=== PATIENT | female | born 1995 | race American Indian/Alaskan Native ===

== ENCOUNTER 2017-07-18 12:06 | Emergency (ER) | payer MEDICAID ==
[2017-07-18 12:23] VITALS: BP 131/85
[2017-07-18] MEDS ORDERED: MOTRIN PO ONE (16:50)
[2017-07-18 16:56] LABS: Eosinophils % (Auto) 1.5 % (0.0-4.3); Hemoglobin 11.9 gm/dl (10.1-14.3); Mean Corpuscular HGB Conc 33 % (30-34); Mean Corpuscular Hemoglobin 29 pg (28-32); Mean Corpuscular Volume 88 fl (79-97); Platelet Count 306 K/mm3 (140-440); Red Cell Distribution Width 14.3 % (13.2-15.2); White Blood Count 5.6 K/mm3 (4.5-11.0)
[2017-07-18 17:12] LABS: Anion Gap 15 mmol/L; BUN/Creatinine Ratio 16; Blood Urea Nitrogen 8 mg/dL (7-17); Calcium 8.6 mg/dL (8.4-10.2); Carbon Dioxide 27 mmol/L (22-30); Chloride 101.9 mmol/L (98-107); Glucose 107 mg/dL (65-100); Potassium 3.7 mmol/L (3.6-5.0); Sodium 140 mmol/L (137-145)
--- NOTE | 2017-07-18 17:43 | XRay Report ---
FINAL REPORT EXAM: XR CHEST ROUTINE 2V HISTORY: CP TECHNIQUE: PA and lateral views of the chest PRIORS: None. FINDINGS: Lines, tubes, and devices: N/A Lungs and pleura: Trachea is normal in position. Lungs are clear of infiltrate, pleural effusion, vascular congestion, or pneumothorax. Cardiomediastinal silhouette: Cardiac and mediastinal silhouettes are unremarkable. Other: Bony structures are intact. IMPRESSION: No acute cardiopulmonary process seen.
--- NOTE | 2017-07-18 17:53 | Emergency Department Report ---
ED Chest Pain HPI - General Chief Complaint: Pain General Stated Complaint: BURNING IN CHEST Time Seen by Provider: 07/18/17 16:00 Source: patient Mode of arrival: Ambulatory Limitations: No Limitations - History of Present Illness Initial Comments: This is a 22-year-old female nontoxic, well nourished in appearance, no acute signs of distress presents to the ED with c/o of midsternal pain that is described as burning and aching problem of 8 out of 10 x1 day. Patient denies any trauma to the region. Denies any fever, chills, nausea, vomiting, headache , stiff neck, back pain, radiation of pain, bowel pain, shortness of breath or difficulty breathing. Patient denies hemoptysis. Denies any calf pain or calf tenderness. There is recent travels, long car ride, recent hospital stays. Denies any allergies. Past medical history includes hyperthyroid. MD Complaint: chest pain -: days(s) (1) Pain Location: substernal Pain Radiation: none Severity: mild Severity scale (0 -10): 8 Quality: aching, other (burning) Consistency: constant Improves With: nothing Worsens With: nothing re: denies: nausea, vomting, diaphoresis, dyspnea, sense of impending doom Other Symptoms: denies: cough, fever, syncope, rash, acid taste in mouth, leg swelling, palpitations, burping Treatments Prior to Arrival: none - Related Data Previous Rx's Medication Instructions Recorded Last Taken Type Albuterol Sulfate [Ventolin HFA] 2 puff IH Q4H PRN #1 hfa.aer.ad 12/13/14 Unknown Rx Amoxicillin/K Clav Tab [Augmentin 1 tab PO BID #20 tablet 12/13/14 Unknown Rx 875MG] Fluticasone Propionate [Flonase] 2 sprays NS QDAY #1 bottle 12/13/14 Unknown Rx Loratadine [Claritin] 10 mg PO DAILY #30 tablet 12/13/14 Unknown Rx predniSONE [Deltasone] 40 mg PO QDAY #10 tab 12/13/14 Unknown Rx Ibuprofen [Motrin] 600 mg PO Q8H PRN #30 tablet 07/18/17 Unknown Rx predniSONE [Deltasone] 40 mg PO QDAY #5 tab 07/18/17 Unknown Rx Allergies Allergy/AdvReac Type Severity Reaction Status Date / Time No Known Allergies Allergy Verified 12/13/14 09:21 Heart Score - HEART Score History: Slightly suspicious EKG: Normal Age: < 45 Risk factors: No known risk factors Troponin: < normal limit HEART Score: 0 ED Review of Systems ROS: Stated complaint: BURNING IN CHEST Other details as noted in HPI Constitutional: denies: chills, fever Eyes: denies: eye pain, eye discharge, vision change ENT: denies: ear pain, throat pain Respiratory: denies: cough, shortness of breath, wheezing Cardiovascular: chest pain. denies: palpitations Endocrine: no symptoms reported Gastrointestinal: denies: abdominal pain, nausea, diarrhea Genitourinary: denies: urgency, dysuria, discharge Musculoskeletal: denies: back pain, joint swelling, arthralgia Skin: denies: rash, lesions Neurological: denies: headache, weakness, paresthesias Psychiatric: denies: anxiety, depression Hematological/Lymphatic: denies: easy bleeding, easy bruising ED Past Medical Hx - Past Medical History Previous Medical History?: Yes Hx Hypertension: No Hx Congestive Heart Failure: No Hx Diabetes: No Hx Deep Vein Thrombosis: No Hx Renal Disease: No Hx Sickle Cell Disease: No Hx Seizures: No Hx Asthma: No Hx COPD: No Hx HIV: No Additional medical history: hyperthyroid - Surgical History Past Surgical History?: No - Social History Smoking Status: Current Every Day Smoker Substance Use Type: Alcohol - Medications Home Medications: Home Medications Medication Instructions Recorded Confirmed Last Taken Type Albuterol Sulfate [Ventolin HFA] 2 puff IH Q4H PRN #1 hfa.aer.ad 12/13/14 Unknown Rx Amoxicillin/K Clav Tab [Augmentin 1 tab PO BID #20 tablet 12/13/14 Unknown Rx 875MG] Fluticasone Propionate [Flonase] 2 sprays NS QDAY #1 bottle 12/13/14 Unknown Rx Loratadine [Claritin] 10 mg PO DAILY #30 tablet 12/13/14 Unknown Rx predniSONE [Deltasone] 40 mg PO QDAY #10 tab 12/13/14 Unknown Rx Ibuprofen [Motrin] 600 mg PO Q8H PRN #30 tablet 07/18/17 Unknown Rx predniSONE [Deltasone] 40 mg PO QDAY #5 tab 07/18/17 Unknown Rx ED Physical Exam - General Limitations: No Limitations General appearance: alert, in no apparent distress - Head Head exam: Present: atraumatic, normocephalic, normal inspection - Eye Eye exam: Present: normal appearance, PERRL, EOMI. Absent: scleral icterus, conjunctival injection, nystagmus, periorbital swelling, periorbital tenderness Pupils: Present: normal accommodation - ENT ENT exam: Present: normal exam, normal orophraynx, mucous membranes moist, TM's normal bilaterally, normal external ear exam - Neck Neck exam: Present: normal inspection, full ROM. Absent: tenderness, meningismus, lymphadenopathy, thyromegaly - Respiratory Respiratory exam: Present: normal lung sounds bilaterally, chest wall tenderness. Absent: respiratory distress, wheezes, rales, rhonchi, stridor, accessory muscle use, decreased breath sounds, prolonged expiratory - Cardiovascular Cardiovascular Exam: Present: regular rate, normal rhythm, normal heart sounds. Absent: bradycardia, tachycardia, irregular rhythm, systolic murmur, diastolic murmur, rubs, gallop - GI/Abdominal GI/Abdominal exam: Present: soft, normal bowel sounds. Absent: distended, tenderness, guarding, rebound, rigid, diminished bowel sounds - Rectal Rectal exam: Present: deferred - Extremities Exam Extremities exam: Present: normal inspection, full ROM, normal capillary refill. Absent: tenderness, pedal edema, joint swelling, calf tenderness - Back Exam Back exam: Present: normal inspection, full ROM. Absent: tenderness, CVA tenderness (R), CVA tenderness (L), muscle spasm, paraspinal tenderness, vertebral tenderness, rash noted - Neurological Exam Neurological exam: Present: alert, oriented X3, CN II-XII intact, normal gait, reflexes normal - Psychiatric Psychiatric exam: Present: normal affect, normal mood - Skin Skin exam: Present: warm, dry, intact, normal color. Absent: rash ED Course Vital Signs 07/18/17 12:19 Temperature 97.4 F L Pulse Rate 60 Respiratory 18 Rate Blood Pressure 131/85 O2 Sat by Pulse 100 Oximetry - Reevaluation(s) Reevaluation #1: 07/18/17 18:22 Patient is speaking in full sentences with no signs of distress noted. AALIYAH score - Aaliyah Score Age > 65: (0) No Aspirin use within the Past 7 Days: (0) No 3 or more CAD Risk Factors: (0) No 2 or more Angina events in past 24 hrs: (0) No Known CAD with more than 50% Stenosis: (0) No Elevated Cardiac Markers: (0) No ST Deviation Greater than 0.5mm: (0) No AALIYAH Score: 0 ED Medical Decision Making - Lab Data Result diagrams: 07/18/17 16:39 07/18/17 16:39 - EKG Data When compared to previous EKG there are: no significant change Interpretation: no acute changes, normal EKG - Radiology Data Radiology results: report reviewed interpreted by me: radiologist normal exam - Medical Decision Making This is a 22-year-old female that presents with costochondritis. Patient is stable and was examined by me. EKG obtained with normal sinus rhythm and no ST abnormalities. CBC, BMP, troponin, d-dimer obtained within normal limits. Negative test. Chest x-ray has been obtained and the radiologist with normal exam. Patient was notified of x-ray results with no questionable by the patient. She received Solu-Medrol in the ED. Patient received Motrin which patient stated his symptoms is improving and has subsided. Patient will be be discharged with prednisone. Patient was instructed Follow-up with a primary care doctor in 3-5 days or if symptoms worsen and continue return to emergency room as soon as possible. At time time of discharge, the patient does not seem toxic or ill in appearance. No acute signs of distress noted. Patient agrees to discharge treatment plan of care. No further questions noted by the patient. Critical care attestation.: If time is entered above; I have spent that time in minutes in the direct care of this critically ill patient, excluding procedure time. ED Disposition Clinical Impression: Costochondritis Disposition: DC- TO HOME OR SELFCARE Is pt being admited?: No Does the pt Need Aspirin: No Condition: Stable Instructions: Costochondritis (ED), Ibuprofen (By mouth), Prednisone (By mouth) Additional Instructions: Follow-up with a primary care doctor in 3-5 days or if symptoms worsen and continue return to emergency room as soon as possible. Prescriptions: Ibuprofen [Motrin] 600 mg PO Q8H PRN #30 tablet PRN Reason: Pain predniSONE [Deltasone] 40 mg PO QDAY #5 tab Referrals: PRIMARY CARE, [Primary Care Provider] - 3-5 Days RILEY DELAROSA MD [Staff Physician] - 3-5 Days [facility] [Outside] - 3[facility] - [facility]-5 Days Forms: Work/School Release Form(ED)
== END 2017-07-18 18:40 | disposition home or self-care (01) ==
LOC: ED 12:06
DX: M94.0 Chondrocostal junction syndrome [Tietze] (principal); F17.200 Nicotine dependence, unspecified, uncomplicated; E05.90 Thyrotoxicosis, unspecified without thyrotoxic crisis or storm
CPT/HCPCS: 36415; 71020; 80048; 84484; 84703; 85025; 85379; 93005; 93010; 96372; 99284; J2930

== ENCOUNTER 2020-03-12 22:17 | Emergency (ER) | payer MEDICAID ==
[2020-03-12 23:26] LABS: Basophils # (Auto) 0.1 K/mm3 (0.0-0.1); Basophils % (Auto) 0.9 % (0.0-1.8); Eosinophils # (Auto) 0.1 K/mm3 (0.0-0.4); Eosinophils % (Auto) 1.5 % (0.0-4.3); Hematocrit 36.3 % (30.3-42.9); Hemoglobin 12.6 gm/dl (10.1-14.3); Lymphocytes # (Auto) 3.6 K/mm3 (1.2-5.4); Lymphocytes % (Auto) 50.7 % (13.4-35.0); Mean Corpuscular HGB Conc 35 % (30-34); Mean Corpuscular Volume 89 fl (79-97); Monocytes # (Auto) 0.7 K/mm3 (0.0-0.8); Monocytes % (Auto) 9.2 % (0.0-7.3); Platelet Count 280 K/mm3 (140-440); Red Blood Count 4.06 M/mm3 (3.65-5.03); Red Cell Distribution Width 13.8 % (13.2-15.2)
[2020-03-12 23:43] LABS: Alanine Aminotransferase 15 units/L (7-56); Albumin 4.3 g/dL (3.9-5); BUN/Creatinine Ratio 15; Blood Urea Nitrogen 12 mg/dL (7-17); Calcium 9.2 mg/dL (8.4-10.2); Hemolysis Index 144
== END 2020-03-13 02:00 | disposition left against medical advice (07) ==
LOC: ED 22:17
DX: R10.30 Lower abdominal pain, unspecified (principal); Z53.21 Procedure and treatment not carried out due to patient leaving prior to being seen by health care provider
CPT/HCPCS: 80053; 85025

== ENCOUNTER 2020-03-13 11:45 | Emergency (ER) | payer MEDICAID ==
--- NOTE | 2020-03-13 16:01 | Emergency Department Report ---
ED Abdominal Pain HPI - General Chief Complaint: Abdominal Pain Stated Complaint: PAIN IN STOMACH Time Seen by Provider: 03/13/20 14:57 Source: patient Mode of arrival: Ambulatory Limitations: No Limitations - History of Present Illness Initial Comments: 24-year-old -[place] female patient presents stating " I passed a large clot of tissue" today. Patient came to the ED yesterday for lower abdominal pain and left flank pain however she left before she was seen. She states that pain has resolved and denies any dysuria/hematuria/urinary frequency, vaginal discharge, dyspareunia, history of fibroids/ovarian cysts, fever/chills/sweats, or history of kidney stones. She also denies any changes in her stools, nausea/vomiting, chest pain, cough, or shortness of breath. Patient states she was placed on Depo-Provera 1 month ago and her LMP was 1 month prior to that. - Related Data Previous Rx's Medication Instructions Recorded Last Taken Type Albuterol Sulfate [Ventolin HFA] 2 puff IH Q4H PRN #1 hfa.aer.ad 12/13/14 Unknown Rx Amoxicillin/K Clav Tab [Augmentin 1 tab PO BID #20 tablet 12/13/14 Unknown Rx 875MG] Fluticasone Propionate [Flonase] 2 sprays NS QDAY #1 bottle 12/13/14 Unknown Rx Loratadine (Nf) [Claritin] 10 mg PO DAILY #30 tablet 12/13/14 Unknown Rx predniSONE [Deltasone] 40 mg PO QDAY #10 tab 12/13/14 Unknown Rx Ibuprofen [Motrin] 600 mg PO Q8H PRN #30 tablet 07/18/17 Unknown Rx predniSONE [Deltasone] 40 mg PO QDAY #5 tab 07/18/17 Unknown Rx Allergies Allergy/AdvReac Type Severity Reaction Status Date / Time hydrocodone Allergy Swelling Verified 03/13/20 11:47 ED Review of Systems ROS: Stated complaint: PAIN IN STOMACH Other details as noted in HPI Constitutional: denies: chills, fever ENT: denies: throat pain Respiratory: denies: cough, shortness of breath Cardiovascular: denies: chest pain Gastrointestinal: denies: abdominal pain, nausea, vomiting, diarrhea, constipation, hematemesis, melena, hematochezia Genitourinary: abnormal menses. denies: urgency, dysuria, frequency, hematuria, discharge Musculoskeletal: denies: back pain Skin: denies: rash, lesions Hematological/Lymphatic: denies: swollen glands ED Past Medical Hx - Past Medical History Previous Medical History?: Yes Hx Hypertension: No Hx Congestive Heart Failure: No Hx Diabetes: No Hx Deep Vein Thrombosis: No Hx Renal Disease: No Hx Sickle Cell Disease: No Hx Seizures: No Hx Asthma: No Hx COPD: No Hx HIV: No Additional medical history: hyperthyroid - Surgical History Past Surgical History?: No - Social History Smoking Status: Current Every Day Smoker Substance Use Type: Alcohol - Medications Home Medications: Home Medications Medication Instructions Recorded Confirmed Last Taken Type Albuterol Sulfate [Ventolin HFA] 2 puff IH Q4H PRN #1 hfa.aer.ad 12/13/14 Unknown Rx Amoxicillin/K Clav Tab [Augmentin 1 tab PO BID #20 tablet 12/13/14 Unknown Rx 875MG] Fluticasone Propionate [Flonase] 2 sprays NS QDAY #1 bottle 12/13/14 Unknown Rx Loratadine (Nf) [Claritin] 10 mg PO DAILY #30 tablet 12/13/14 Unknown Rx predniSONE [Deltasone] 40 mg PO QDAY #10 tab 12/13/14 Unknown Rx Ibuprofen [Motrin] 600 mg PO Q8H PRN #30 tablet 07/18/17 Unknown Rx predniSONE [Deltasone] 40 mg PO QDAY #5 tab 07/18/17 Unknown Rx ED Physical Exam - General Limitations: No Limitations General appearance: alert, in no apparent distress - Head Head exam: Present: atraumatic, normocephalic - Eye Eye exam: Present: normal appearance - ENT ENT exam: Present: normal exam - Neck Neck exam: Present: normal inspection - Respiratory Respiratory exam: Present: normal lung sounds bilaterally. Absent: respiratory distress - Cardiovascular Cardiovascular Exam: Present: regular rate, normal rhythm. Absent: systolic murmur, diastolic murmur, rubs, gallop - GI/Abdominal GI/Abdominal exam: Present: soft, normal bowel sounds. Absent: distended, tenderness, guarding, rebound, rigid - Back Exam Back exam: Present: normal inspection. Absent: tenderness, CVA tenderness (L) - Neurological Exam Neurological exam: Present: alert, oriented X3 - Psychiatric Psychiatric exam: Present: normal affect, normal mood - Skin Skin exam: Present: warm, dry, intact, normal color. Absent: rash, cyanosis, diaphoretic, erythema ED Course Vital Signs 03/13/20 03/13/20 11:47 15:59 Temperature 98.4 F 98.8 F Pulse Rate 84 60 Respiratory 18 14 Rate Blood Pressure 145/99 110/80 O2 Sat by Pulse 100 100 Oximetry ED Medical Decision Making - Lab Data Lab Results 03/13/20 Range/Units 15:30 Urine Color Yellow (Yellow) Urine Turbidity Clear (Clear) Urine pH 6.0 (5.0-7.0) Ur Specific [place] 1.029 (1.003-1.030) Urine Protein <15 mg/dl (Negative) mg/dL Urine Glucose (UA) Neg (Negative) mg/dL Urine Ketones Neg (Negative) mg/dL Urine Blood Lg (Negative) Urine Nitrite Neg (Negative) Urine Bilirubin Neg (Negative) Urine Urobilinogen 4.0 (<2.0) mg/dL Ur Leukocyte Esterase Tr (Negative) Urine WBC (Auto) 3.0 (0.0-6.0) /HPF Urine RBC (Auto) 1.0 (0.0-6.0) /HPF U Epithel Cells (Auto) 3.0 (0-13.0) /HPF Urine Mucus 3+ /HPF Urine HCG, Qual Negative (Negative) - Medical Decision Making 24-year-old -[place] female patient presents stating " I passed a large clot of tissue" today. Patient did have some abdominal pain yesterday that has resolved. She has no abdominal tenderness or CVA tenderness on exam. UA is negative for infection. Urine negative. Patient is well-appearing, her vitals are stable, and she is stable for discharge home and follow-up with her [employer]. Strict return precautions were discussed in detail with patient who verbalizes understanding Critical care attestation.: If time is entered above; I have spent that time in minutes in the direct care of this critically ill patient, excluding procedure time. ED Disposition Clinical Impression: Abnormal menses Disposition: DC-01 TO HOME OR SELFCARE Is pt being admited?: No Condition: Stable Instructions: Abdominal Pain (ED) Referrals: LA DELONG MD [Staff Physician] - 3-5 Days
[2020-03-13 16:25] LABS: Bilirubin,Urine NEG (Negative); Blood,Urine LG (Negative); Color,Urine Yellow (Yellow); Mucus,Urine 3+ /HPF; Protein,Urine <15 mg/dL mg/dL (Negative)
[2020-03-13 16:28] LABS: HCG Qualitative,Urine Negative (Negative)
[2020-03-13 16:37] VITALS: BP 110/80
== END 2020-03-13 17:04 | disposition home or self-care (01) ==
LOC: ED 11:45
DX: N92.6 Irregular menstruation, unspecified (principal); E03.9 Hypothyroidism, unspecified; F17.200 Nicotine dependence, unspecified, uncomplicated; Z79.1 Long term (current) use of non-steroidal anti-inflammatories (NSAID); Z79.2 Long term (current) use of antibiotics; Z79.899 Other long term (current) drug therapy; Z88.8 Allergy status to other drugs, medicaments and biological substances
CPT/HCPCS: 81001; 81025; 99283